=== PATIENT | female | born 1965 | race Caucasian/White ===

== ENCOUNTER 2023-03-16 06:39 | Emergency (ER) | payer OTHER ==
[~2023-03-16] VITALS: Ht 170.2 cm; Wt 90.7 kg
[2023-03-16] MEDS ORDERED: IBUPROFEN 800 MG TABLET PO ONE (07:15)
[2023-03-16] MEDS ORDERED: IBUPROFEN 800 MG TABLET ONE (07:27)
[2023-03-16] MEDS ORDERED: IBUP-1957 PO (08:43)
[2023-03-16 08:59] VITALS: BP 150/87; O2SAT 98
== END 2023-03-16 09:00 | disposition home or self-care (01) ==
LOC: ER 06:45
DX: S06.0X0A Concussion without loss of consciousness, initial encounter (principal); S16.1XXA Strain of muscle, fascia and tendon at neck level, initial encounter; Z88.0 Allergy status to penicillin; Z87.891 Personal history of nicotine dependence; Z79.1 Long term (current) use of non-steroidal anti-inflammatories (NSAID); W01.0XXA Fall on same level from slipping, tripping and stumbling without subsequent striking against object, initial encounter; Y93.89 Activity, other specified; Y92.89 Other specified places as the place of occurrence of the external cause; Y99.8 Other external cause status
CPT/HCPCS: 70450; 72125; A4663